=== PATIENT | female | born 1985 | race Caucasian/White ===

== ENCOUNTER 2018-06-23 12:39 | Emergency (ER) | payer MEDICAID, SELFPAY ==
[2018-06-23 12:40] VITALS: BP 144/84; PULSE 81; RESP 19; O2SAT 100
[2018-06-23 12:44] VITALS: BP 127/87; PULSE 90; RESP 18; TEMP 36.6; O2SAT 98; BMI 47.1
--- NOTE | 2018-06-23 12:49 | EKG12_ITS ---
Test Reason : OD Blood Pressure : / mmHG Vent. Rate : 084 BPM Atrial Rate : 084 BPM P-R Int : 136 ms QRS Dur : 090 ms QT Int : 406 ms P-R-T Axes : 042 048 -02 degrees QTc Int : 479 ms Normal sinus rhythm Nonspecific T wave abnormality Confirmed by NORMA MEIER, SHREYAS ([id number]), video editor ROGER DONALD ([id number] on 06/25/2018 1:24:27 PM Referred By: SOFIYA Confirmed By:SHREYAS GREEN MD
--- NOTE | 2018-06-23 12:51 | ED.VISSUMM ---
- ER Visit Summary Date of Service: 06/23/18 Chief Complaint: Klonopin overdose History of Present Illness: The patient is a 33 F who presents for a Klonopin overdose. Patient was being evaluated at [facility] for admission for heroin detoxification. Patient states she is on Subutex and is greater than 20 weeks . She is unable to tell us exactly how far along she is. Patient states she last used heroin yesterday. She took 5 of her Klonopin prior to admission to [facility] and states she normally can handle that many but the affected her more today. Patient denies any other substance use. Review of systems and remainder of history is limited secondary to patient's somnolence. Physical Examination: Vital signs: afebrile, hemodynamically stable, no hypoxia on room air General: well nourished, well developed, in mild distress, somnolent but arouses to vocal stimulus, falls back asleep while answering questions, speech is slow and slurred Skin: warm, dry, no rash, no pallor HEENT: normocephalic and atraumatic; PERRL but sluggish, EOMI, moist mucous membranes Cardiovascular: regular rate and rhythm without murmurs, no peripheral edema, 2+ pulses all distal extremities Respiratory: No increased work of breathing, lungs are clear to auscultation bilaterally, no rales, rhonchi or wheezing Abdominal: Abdomen is soft, gravid, nontender with normoactive bowel sounds, no guarding or rebound, no masses MSK: Moves all extremities, no deformities, normal strength Neuro: No facial droop, sensation and motor function intact and symmetric [id number] Test Results: Abnormal Lab Results 06/23/18 06/23/18 06/23/18 13:05 13:05 13:05 WBC 6.0 RBC 3.62 L Hgb 11.1 L Hct 33.4 L MCV 92.3 MCH 30.7 MCHC 33.2 RDW 13.0 RDW Differential 42.7 Plt Count 168 MPV 10.1 Immature Gran % (Auto) 0.300 Neut % (Auto) 72.9 H Lymph % (Auto) 19.4 [place] % (Auto) 5.9 Eos % (Auto) 1.3 Baso % (Auto) 0.2 Absolute Neuts (auto) 4.4 Absolute Lymphs (auto) 1.16 Total Counted Not Reportable Sodium 139 Potassium 3.3 L Chloride 105 Carbon Dioxide 25.0 Anion Gap 9 BUN 7 Creatinine 0.55 Estim Creat Clear Calc 125.63 Est GFR (MDRD) Af Amer 162 Est GFR (MDRD) Non-Af 134 BUN/Creatinine Ratio 12.6 Glucose 78 Calcium 8.1 L Total Bilirubin 0.30 AST 64 H ALT 36 Alkaline Phosphatase 53 Total Protein 6.5 Albumin 2.7 L Globulin 3.8 Albumin/Globulin Ratio 0.7 L Urine Color Urine Clarity Urine pH Ur Specific [place] Urine Protein Urine Glucose (UA) Urine Ketones Urine Occult Blood Urine Nitrite Urine Bilirubin Urine Urobilinogen Ur Leukocyte Esterase Urine RBC Urine WBC Ur Squamous Epith Cells Urine Bacteria Urine Mucus Urine Opiates Screen Urine Methadone Screen Ur Barbiturates Screen Ur Phencyclidine Scrn Ur Amphetamines Screen U Methamphetamin-MDMA U Benzodiazepines Scrn Urine Cocaine Screen U Cannabinoids Screen Ur Drug Screen Comment Ethyl Alcohol < 3.0 06/23/18 06/23/18 13:30 13:30 WBC RBC Hgb Hct MCV MCH MCHC RDW RDW Differential Plt Count MPV Immature Gran % (Auto) Neut % (Auto) Lymph % (Auto) [place] % (Auto) Eos % (Auto) Baso % (Auto) Absolute Neuts (auto) Absolute Lymphs (auto) Total Counted Sodium Potassium Chloride Carbon Dioxide Anion Gap BUN Creatinine Estim Creat Clear Calc Est GFR (MDRD) Af Amer Est GFR (MDRD) Non-Af BUN/Creatinine Ratio Glucose Calcium Total Bilirubin AST ALT Alkaline Phosphatase Total Protein Albumin Globulin Albumin/Globulin Ratio Urine Color Yellow Urine Clarity Sl. Cloudy Urine pH 6.0 Ur Specific [place] 1.015 Urine Protein Negative Urine Glucose (UA) Normal Urine Ketones Negative Urine Occult Blood Negative Urine Nitrite Negative Urine Bilirubin Negative Urine Urobilinogen Normal Ur Leukocyte Esterase Negative Urine RBC 0 SEEN Urine WBC 0 SEEN Ur Squamous Epith Cells 0-5 SEEN Urine Bacteria 0 SEEN Urine Mucus 0 SEEN Urine Opiates Screen NEGATIVE Urine Methadone Screen NEGATIVE Ur Barbiturates Screen NEGATIVE Ur Phencyclidine Scrn NEGATIVE Ur Amphetamines Screen POSITIVE H U Methamphetamin-MDMA NEGATIVE U Benzodiazepines Scrn POSITIVE H Urine Cocaine Screen NEGATIVE U Cannabinoids Screen NEGATIVE Ur Drug Screen Comment Ethyl Alcohol Medications Given Sodium Chloride () 1,000 mls @ 500 mls/hr IV .Q2H KELLY Stop: 06/23/18 14:49 Last Admin: 10/24/18 13:15 Dose: 500 mls/hr Discontinued Medications Naloxone HCl (Narcan) 0.4 mg IV X1 ONE Stop: 06/23/18 14:06 Last Admin: 06/23/18 14:12 Dose: 0.4 mg Naloxone HCl (Narcan) 0.4 mg IV X1 ONE Stop: 06/23/18 14:26 Last Admin: 06/23/18 14:28 Dose: 0.4 mg Emergency Department Course and Treatment: Patient presents with concerns for benzodiazepine overdose. Patient states she is on Subutex but does state recent use of heroin, denying it today. Initially no Narcan was given as patient was rousing to voice. Patient became more somnolent and required tactile stimulation to arouse. She was given a test dose of Narcan without any result. No further Narcan given. She was given IV hydration. Labs were remarkable for tox positive for benzos and amphetamines. Negative for opiates. Patient was observed and monitored with pulse oximetry and capnography, without any airway compromise. Patient maintained her airway and remained arousable to tactile stimulation. Thus intubation was not performed. OB evaluated fetus but was unable to provide monitoring in an ICU setting. Because patient is in third trimester and will require ICU monitoring for an overdose, this level of care is not available at this institution. She is unable to discuss choice of transfer, and no family is available to make this decision. Thus patient was discussed with [facility] for transfer for intensive care management as well as maternal care. Paperwork was obtained from [employer] and showed that the patient recently was admitted at [facility] for addiction treatment in a female. Patient was accepted for transfer to the ED by Dr. Durham. She was discussed with ED Attending Dr. Mendez for transfer. At time of transfer, patient was mildly more responsive, spontaneously opening eyes but still somnolent. Treatment Plan: [] Disposition: [] Impression: Benzodiazepine overdose, third trimester , altered mental status This note was generated with Predictifyation software. It may contain incorrect words, spelling, and punctuation that were not noted in review of the chart prior to signing ED Disposition - Plan for ED Patient: Chief Complaint: Overdose Referrals: [facility] Doctor,Out of [NON-STAFF] -
--- NOTE | 2018-06-23 12:57 | ED.RN ---
NO OLD EKG'S IN MUSE
[2018-06-23] MEDS: 0.9% Normal Saline 1,000 ML 500 ML IV (13:15)
[2018-06-23 13:21] LABS: Absolute Lymphocyte Count 1.16 X10^3/ul (0.83-4.51); Absolute Neutrophil Count 4.4 X10^3/uL (2.0-7.7); Basophil# 0.01 X10^3/uL; Basophil% 0.2 % (0-1); Eosinophil# 0.08 X10^3/uL; Eosinophils% 1.3 % (0-5); Hematocrit 33.4 % (37-47); Hemoglobin 11.1 g/dl (12.0-15.0); Lymphocyte # 1.16 X10^3/ul (4.0); Lymphocyte % 19.4 % (19-41); Mean Corp Hgb Conc 33.2 g/gl (32-36); Mean Corpuscular Hgb 30.7 pg (27.0-32.0); Mean Corpuscular Volume 92.3 fL (81-99); Mean Platelet Vol. 10.1 fl (6.2-12.0); Monocyte# 0.35 X10^3/uL; Monocyte% 5.9 % (0-10); Neutrophil # 4.36 X10^3/uL (2.7-7.7); Neutrophil % 72.9 % (47-70); POSITIVE COUNT NO; POSITIVE DIFFERENTIAL NO; POSITIVE MORPHOLOGY NO; Platelet Count 168 K/mm3 (150-450); RBC Distribution Width SD 42.7 fl (35.1-43.9); Red Blood Count 3.62 M/mm3 (4.2-5.4)
[2018-06-23 13:34] LABS: ALB/GLOB Ratio 0.7 RATIO (0.9-2.4); AST(SGOT) 64 U/L (15-37); Alanine Aminotransfer ALT/SGPT 36 U/L (13-56); Albumin, Serum 2.7 g/dL (3.2-5.0); Alkaline Phosphatase 53 U/L (45-117); Anion Gap 9 (5-15); BUN 7 mg/dL (7-18); BUN/Creat Ratio 12.6 RATIO (10-20); Calcium,Total 8.1 mg/dL (8.5-10.1); Chloride 105 mmol/L (98-107); Creatinine, Serum 0.55 mg/dL (0.55-1.02); EST Glomerular Filtration Rate 134 mL/min (>60); Est Glom Filt Rate - Afr Amer 162 mL/min (>60); Estimated Creatinine Clearance 125.63 ml/min; Globulin 3.8 g/dL (2.2-4.2); Glucose 78 mg/dL (74-106); Potassium 3.3 mmol/L (3.5-5.1); Protein, Total 6.5 g/dL (6.4-8.2); Sodium Level 139 mmol/L (136-145)
[2018-06-23 13:38] LABS: Alcohol, Blood (Medical)-Serum < 3.0 mg/dL
[2018-06-23 13:40] VITALS: BP 122/66; PULSE 76; RESP 27; O2SAT 100
[2018-06-23 13:48] LABS: Bacteria 0 SEEN /hpf (None Seen); Mucous, Urine 0 SEEN /hpf (<or=2+); Red Blood Cells-Urine 0 SEEN /hpf (0-5); White Blood Cells 0 SEEN /hpf (0-5)
[2018-06-23 13:51] LABS: Color, Urine Yellow (Yellow); Glucose, Dipstick Normal (Normal); Ketone-Dipstick Negative (Negative); Leukocyte Esterase-Dipstick Negative /ul (Negative); Nitrite-Dipstick Negative (Negative); Occult Blood-Urine Negative /ul (Negative); Protein-Dipstick Negative (Negative); Specific Gravity, Urine 1.015 (1.002-1.030); Urine Bilirubin Dipstick Negative (Negative); Urine Clarity Sl. Cloudy (Clear); Urine Urobilinogen Normal (Normal)
[2018-06-23 13:55] LABS: Squamous Epithelial Cells - UA 0-5 SEEN /hpf (5-10)
--- NOTE | 2018-06-23 13:58 | ED.RN ---
PER EMS PT HAD JUST ARRIVED AT [facility] / [address] FOR DETOX/REHAB. PT HAD NOT CHECKED IN, SO DEMOGRAPHIC INFO RECEIVED AT 180. PER EMS GRANDMOTHER DROPPED OF PT, GRANDMOTHER WAS TOLD TO COME TO [facility]. PT VERY LETHARGIC, AROUSES TO VOICE, PT DENIES SUICIDAL IDEATION, STATES SHE TOOK THAT MANY KLONOPIN BEFORE AND HANDLED IT. PT STATES SHE USED HEROIN YESTERDAY, ONE DOSE OF SUBOXONE THIS AND APPROX 5 2MG KLONOPIN AT 0700 TODAY. PT IS UNABLE TO GIVEN DETAILS ABOUT OTHER THAN DUE DATE OF 09/28/18.
[2018-06-23 14:00] VITALS: BP 134/79; PULSE 82; RESP 17; O2SAT 100
[2018-06-23 14:09] LABS: Amphetamine Urine VISTA POSITIVE (<1000 ng/mL); Barbiturate Urine VISTA NEGATIVE (< 200 ng/mL); Benzodiazepine Urine VISTA POSITIVE (< 200 ng/mL); Cocaine Urine VISTA NEGATIVE (< 300 ng/mL); Ecstacy Urine VISTA NEGATIVE (< 500 ng/mL); Methadone Urine VISTA NEGATIVE (< 300 ng/mL); PCP Urine VISTA NEGATIVE (< 25 ng/mL); THC Urine VISTA NEGATIVE (< 50 ng/mL); Vista UDS pH Range 6
[2018-06-23] MEDS: Naloxone 0.4 MG/ML Syringe IV ×2 (14:12→14:28)
--- NOTE | 2018-06-23 14:27 | ED.RN ---
OB NURSES IN ROOM, ATTEMPTED TO PLACE MONITOR, UNSUCCESSFUL. PER OB NURSES, HEART RATE 130.
--- NOTE | 2018-06-23 14:29 | ED.RN ---
PT MORE OBTUNDED, AROUSES ONLY TO PAINFUL STIMULI, MD AWARE. NARCAN ADMINISTERED WITH NO RESULTS. VITAL SIGNS REMAIN STABLE. NO FAMILY PRESENT.
[2018-06-23 14:49] VITALS: BP 128/79; PULSE 78; RESP 19; O2SAT 100
== END 2018-06-23 14:55 | disposition short-term general hospital (02) ==
PROVIDERS: Emergency Provider Emergency Medicine
DX: O9A.213 Injury, poisoning and certain other consequences of external causes complicating pregnancy, third trimester (principal); T42.4X1A Poisoning by benzodiazepines, accidental (unintentional), initial encounter; R41.82 Altered mental status, unspecified; Z3A.00 Weeks of gestation of pregnancy not specified; Y92.89 Other specified places as the place of occurrence of the external cause
CPT/HCPCS: 51702; 80053; 80307; 80320; 81001; 85025; 93005; 94770; 96361; 96374; 96376; 99285; J7030; G0480; J2310